=== PATIENT | female | born 1970 | race Caucasian/White ===

== ENCOUNTER 2017-02-27 13:08 | Day surgery (SDC) | payer OTHER ==
[2017-02-27] MEDS ORDERED: LR 1,000 ML IV ONE (13:19)
[2017-02-27] MEDS ORDERED: LIDOCAINE 1% 2 ML INJ ID PRN (13:19)
--- NOTE | 2017-02-27 13:57 | CPEKG ---
Heart Rate: 78 RR Interval: 769 P-R Interval: 144 QRSD Interval: 86 QT Interval: 364 QTC Interval: 415 P [place]: 69 QRS [place]: 71 T Wave [place]: 79 EKG Severity - NORMAL ECG - EKG Impression: SINUS RHYTHM Electronically Signed By: Perez Ahn 27-Feb-2017 15:14:19
[2017-02-27] MEDS ORDERED: ALBUTEROL 3 ML DEYVIAL IH PRN (15:03)
[2017-02-27] MEDS ORDERED: ONDANSETRON 4 MG/2 ML VIAL IVP PRN (15:03)
[2017-02-27] MEDS ORDERED: ACETAMINOPHEN 500 MG TAB PO PRN (15:03)
[2017-02-27] MEDS ORDERED: fentaNYL 100 MCG/2 ML INJ IVP PRN (15:03)
[2017-02-27] MEDS ORDERED: NALOXONE HCL 0.4 MG/ML INJ IVP PRN (15:03)
--- NOTE | 2017-02-27 15:06 | PDANEPAE ---
ANE History of Present Illness suprapubic catheter ANE Past Medical History - Cardiovascular History Hx Hypertension: No Hx Arrhythmias: No Hx Chest Pain: No Hx Coronary Artery / Peripheral Vascular Disease: No Hx CHF / Valvular Disease: No Hx Palpitations: No - Pulmonary History Hx COPD: No Hx Asthma/Reactive Airway Disease: No Hx Recent Upper Respiratory Infection: No Hx Oxygen in Use at Home: No Hx Sleep Apnea: No Sleep Apnea Screening Result - Last Documented: Negative - Neurologic History Hx Cerebrovascular Accident: No Hx Seizures: No Hx Dementia: No - Endocrine History Hx Diabetes: No - Renal History Hx Renal Disorders: Yes Renal History Comment: urine retention - Liver History Hx Hepatic Disorders: No - Neurological & Psychiatric Hx Hx Neurological and Psychiatric Disorders: Yes Neurological / Psychiatric History Comment: ms, situational depression - Cancer History Hx Cancer: No - Congenital Disorder History Hx Congenital Disorders: No - GI History Hx Gastrointestinal Disorders: No - Other Health History Other Health History: pt significant for sacral decubitus stage 3/4 (10/22/16) - Chronic Pain History Chronic Pain: Yes (JOINTS) - Surgical History Prior Surgeries: none ANE Review of Systems Review of Systems: - Exercise capacity METS (RN): 1 METS ANE Patient History - Allergies Allergies/Adverse Reactions: No Known Allergies Allergy (Verified 02/25/17 11:17) - Home Medications Home Medications: Dok 02/25/17 [Last Taken 02/26/17 18:00] Levothyroxine 02/25/17 [Last Taken 02/26/17 09:00] Marinol 02/25/17 [Last Taken 02/26/17 20:30] Nitrofurantoin 02/25/17 [Last Taken 02/26/17 20:30] Nystatin 02/25/17 [Last Taken 02/26/17 20:30] traMADol 02/25/17 [Last Taken 02/27/17 08:00] - NPO status NPO Since - Liquids (Date): 02/26/17 NPO Since - Liquids (Time): 23:00 NPO Since - Solids (Date): 02/26/17 NPO Since - Solids (Time): 20:30 - Smoking Hx Smoking Status: Current every day smoker - Family Anes Hx Family Hx Anesthesia Complications: none ANE Labs/Vital Signs - Vital Signs Blood Pressure: 128/87 Heart Rate: 91 Respiratory Rate: 16 O2 Sat (%): 95 Height: 175.26 cm Weight: 56.699 kg ANE Physical Exam - Airway Neck exam: FROM Mallampati Score: Class 2 - Pulmonary Pulmonary: clear to auscultation - Cardiovascular Cardiovascular: regular rate and rhythym - ASA Status ASA Status: III ANE Anesthesia Plan Anesthesia Plan: GA w LMA
[2017-02-27] MEDS ORDERED: PROPOFOL 200 MG/20 ML VIAL ONE (15:23)
[2017-02-27] MEDS ORDERED: fentaNYL 100 MCG/2 ML INJ ONE ×2 (15:24→17:03)
[2017-02-27] MEDS ORDERED: PHENYLEPHRINE HCL 100 MCG/ML SYR ONE (15:42)
[2017-02-27] MEDS ORDERED: epHEDrine SULFATE 10 MG/ML SYR ONE (15:49)
[2017-02-27] MEDS ORDERED: BUPIVACAINE 0.25% 30 ML SDV ONE (15:58)
[2017-02-27] MEDS ORDERED: BACITRACIN ZINC 14.2 GM OINTTUBE TP ONE ×2 (16:23→17:42)
[2017-02-27] MEDS ORDERED: ONDANSETRON 4 MG/2 ML VIAL ONE ×2 (16:25→16:48)
--- NOTE | 2017-02-27 16:32 | PDHPUP ---
History & Physical Update H&P update statement: This history and physical update is based on an assessment of the patient which was completed after admission or registration (within 24 hours), but prior to the surgery/procedure. H&P update: no change in patient's condition since H&P completed
--- NOTE | 2017-02-27 16:34 | POSTOPPROG ---
Post Op Note Date of Operation: 02/27/17 Surgeon: Dilshad Alvarado (# [id number]) Anesthesia: LMA Pre-op Diagnosis: NGB, urinary retention Post-op Diagnosis: NGB, urinary retention Procedure: Cysto, SP tube placement Findings: See op note Inf/Abcess present in the surg proc area at time of surgery?: No EBL: Minimal Complications: None Drains: Other (24 Fr. SP tube) Specimen(s): None
[2017-02-27 17:14] VITALS: PULSE 87
[2017-02-27 17:35] VITALS: RESP 19; O2SAT 94
[2017-02-27 17:44] VITALS: BP 124/80
--- NOTE | 2017-02-27 18:06 | GOP ---
[f rep st] OPERATIVE REPORT DATE OF OPERATION: 02/27/2017 SURGEON: Dilshad Alvarado MD ANESTHESIA: Laryngeal mask with local. PREOPERATIVE DIAGNOSIS: 1. Urinary retention due to neurogenic bladder. 2. Neurogenic bladder secondary to multiple sclerosis. POSTOPERATIVE DIAGNOSIS: 1. Urinary retention due to neurogenic bladder. 2. Neurogenic bladder secondary to multiple sclerosis. PROCEDURE PERFORMED: Cystourethroscopy with formal suprapubic catheter placement. FINDINGS: Highly trabeculated bladder. SPECIMENS: None. ESTIMATED BLOOD LOSS: Minimal. INDICATIONS: This woman has had long-standing urinary retention that has been managed with intermitt ent catheterization over the last several years. She has opted to undergo suprapubic catheter placem ent at this time. The indications for the procedure, as well as potential risks and complications, w ere discussed with the patient preoperatively. She appeared to understand, her questions were answer ed, and she wished to proceed. Written informed surgical consent was thereafter obtained. DESCRIPTION OF PROCEDURE: The patient was brought to the operating room and administered laryngeal m ask anesthesia. She was carefully placed in the low lithotomy position with Crispin stirrups, taking c are to ensure that her hips were not significantly abducted. The genital area and lower abdomen were sterilely prepped and draped in standard fashion. Cystoscopy was performed with the 70-degree lens through the 25-Welsh sheath. Urethra was unremarkable. Bladder was heavily trabeculated, as was pr eviously noted in the office. Otherwise, the bladder was unremarkable without any areas of abnormal erythema, tumors, or foreign bodies. Ureteral orifices were normal in regard to shape and position a long the trigone. I then filled the bladder to capacity through the cystoscope. The cystoscope was then utilized to ma rk out a suitable location in the lower midline for placement of the suprapubic catheter. The patien t was then placed in Trendelenburg position and the cystoscope was withdrawn. A Lowsley retractor wa s inserted and used to tent up the anterior aspect of the bladder along the marked line where the sup rapubic catheter would be placed. An incision was made over this tented portion of bladder. I then cut down to the bladder with a combination of scalpel and electrocautery. The Lowsley retractor was then delivered through the small incision along the lower midline anterior abdomen. A 24-Welsh Fole y catheter was then secured to the Lowsley retractor with the aid of an 0 silk suture. The Lowsley a nd catheter were then pulled through the bladder and out the urethral meatus. The Lowsley was discon nected from the catheter. The catheter was then pushed back into the bladder and 20 cc of sterile fl uid was placed in the balloon. The catheter was then noted to be in good position cystoscopically at this point. The catheter was secured to the abdominal skin with an 0 silk suture. The area around the suprapubic site was dressed with antibiotic ointment, Telfa, 4 x 4 gauze, and tape. The catheter was connected to bag drainage and urine returned at this point was completely clear. The patient wa s then awakened, transferred to her bed, then taken to the recovery room. She tolerated the procedur e well overall. It should also be mentioned a total of 20 cc of 0.25% Marcaine with epinephrine was used for local anesthetic throughout the case. COMPLICATIONS: None. DISPOSITION: She was transferred to the recovery in stable condition and will be instructed to retur n to my office in approximately 2 weeks. /[id number]/MODL
--- NOTE | 2017-02-27 18:12 | POSTANESTH ---
Post Anesthetic Evaluation Cardiovascular Status: Normal, Stable Respiratory Status: Normal, Stable Level of Consciousness/Mental Status: Can Participate in Eval, Alert and Oriented Pain Control: Adequate, Prn Tx Ordered Nausea/Vomiting Control: Adequate, Prn Tx Ordered Complications Possibly Related to Anesthesia: None Noted
[2017-02-27 18:16] VITALS: TEMP 97.7
== END 2017-02-27 18:02 | disposition home or self-care (01) ==
LOC: FSGY 13:08
PROVIDERS: ATTEND Specialist
PROC: 0T9B30Z Drainage of Bladder with Drainage Device, Percutaneous Approach (ICD-10-PCS; principal; 2017-02-27 14:15)
DX: N31.9 Neuromuscular dysfunction of bladder, unspecified (principal); G35 Multiple sclerosis; R33.9 Retention of urine, unspecified; N36.44 Muscular disorders of urethra; N32.81 Overactive bladder
CPT/HCPCS: J0171; J0696; J2370; J2405; J2704; J3010

== ENCOUNTER → 2017-04-16 | Outpatient (CLI) | payer OTHER | LOC: FIMAGING 14:27 | PROVIDERS: ATTEND Obstetrics & Gynecology | DX: N85.8 Other specified noninflammatory disorders of uterus (principal); D25.1 Intramural leiomyoma of uterus ==

== ENCOUNTER → 2017-07-23 | Outpatient (CLI) | payer OTHER | LOC: FIMAGING 13:37 | PROVIDERS: ATTEND Obstetrics & Gynecology | DX: N83.201 Unspecified ovarian cyst, right side (principal) | CPT/HCPCS: 86304-90 ==

== ENCOUNTER → 2017-10-06 | Outpatient (CLI) | payer OTHER | LOC: FIMAGING 14:30 | PROVIDERS: ATTEND Urology | DX: R10.9 Unspecified abdominal pain (principal); K59.00 Constipation, unspecified; Z90.49 Acquired absence of other specified parts of digestive tract ==

== ENCOUNTER → 2018-11-10 | Outpatient (CLI) | payer OTHER | LOC: FIMAGING 13:11 ==